=== PATIENT | female | born 1965 | race Caucasian/White ===

== ENCOUNTER 2019-04-11 12:59 | Emergency (ER) | payer MEDICARE, MEDICAID ==
[~2019-04-11] VITALS: Ht 167.6 cm; Wt 88.6 kg
[2019-04-11] MEDS ORDERED: famotidine/PF 10 mg/ml inj IV ONE (13:35)
[2019-04-11] MEDS ORDERED: ondansetron/PF 4mg/2ml inj IV ONE (13:35)
[2019-04-11] MEDS ORDERED: normal saline 1000ML IV soln IVB ONE (13:35)
[2019-04-11] MEDS ORDERED: morphine 4 MG/ML inj SYRINge IV PRN (13:35)
[2019-04-11 14:05] LABS: BASOPHILS % (AUTO) 0.6 % (0-1); EOSINOPHILS % (AUTO) 0.9 % (0-6); HEMATOCRIT 42.7 % (35.0-45.0); HEMOGLOBIN 14.9 g/dl (12.0-16.0); LYMPHOCYTES # (AUTO) 1.2 X10'3 (1.1-4.8); LYMPHOCYTES % (AUTO) 21.8 % (21-51); MEAN CORPUSCULAR HEMOGLOBIN 33.1 PG (27.0-31.0); MEAN CORPUSCULAR HGB CONC 34.8 g/dL (33.0-36.5); MEAN CORPUSCULAR VOLUME 95.2 FL (78-98); MEAN PLATELET VOLUME 10.6 FL (7.4-10.4); MONOCYTES # (AUTO) 0.3 X10'3 (0-0.9); MONOCYTES % (AUTO) 5.6 % (2-12); NEUTROPHILS % (AUTO) 71.1 % (42-75); PLATELET COUNT 127 X10'3 (140-440); RED BLOOD COUNT 4.49 X10'6 (4.20-5.60); RED CELL DISTRIBUTION WIDTH 13.3 % (11.5-14.5); WHITE BLOOD COUNT 5.6 X10'3 (4.5-11.0)
[2019-04-11 14:15] LABS: ALANINE AMINOTRANSFERASE 18 U/L (12-78); ALBUMIN 3.8 G/DL (3.4-5.0); ALBUMIN/GLOBULIN RATIO 1.2 (1.1-1.5); ALKALINE PHOSPHATASE 109 IU/L (46-116); ANION GAP 11 (8-16); ASPARTATE AMINO TRANSFERASE 10 U/L (10-37); BILIRUBIN,TOTAL 0.7 MG/DL (0.1-1.0); BLOOD UREA NITROGEN 15 MG/DL (7-18); BUN/CREATININE RATIO 22.4 (6.6-38.0); CALCIUM 8.9 MG/DL (8.5-10.1); CHLORIDE 107 MMOL/L (99-107); CREATININE 0.67 MG/DL (0.40-0.90); GLUCOSE 103 MG/DL (70-104); LIPASE 318 U/L (73-393); POTASSIUM 3.4 MMOL/L (3.5-5.1); SODIUM 144 MMOL/L (135-145); TOTAL CARBON DIOXIDE 26.4 MMOL/L (24-32); TOTAL PROTEIN 6.9 G/DL (6.4-8.2); eGFR > 90 ML/MIN
[2019-04-11] MEDS ORDERED: OMEP40CA13 PO (14:25)
[2019-04-11] MEDS ORDERED: ONDA4TAB6 PO (14:25)
[2019-04-11 14:44] LABS: CLARITY,URINE CLEAR (Clear); COLOR,URINE YELLOW (Yellow); GLUCOSE, URINE NEGATIVE (Neg); KETONES,URINE NEGATIVE (Neg); LEUKOCYTE ESTERASE ,URINE NEGATIVE (Neg); NITRITES, URINE NEGATIVE (Neg); OCCULT BLOOD,URINE SMALL (Neg); PH,URINE 6.5 (4.8-8.0); PROTEIN,URINE NEGATIVE (Neg); UROBILINOGEN,URINE 0.2 E.U/dL (0.2-1.0)
[2019-04-11 14:46] LABS: UA COLLECTION TYPE CLN CATCH MIDSTREAM
[2019-04-11 14:49] LABS: BACTERIA,URINE NONE SEEN /HPF (Neg); MUCUS STRANDS NONE SEEN /LPF (Neg); SQUAMOUS EPITHELIAL CELL,UR FEW /LPF (FEW); WBC,URINE NONE SEEN /HPF (0-4)
[2019-04-11 15:17] VITALS: BP 181/100
== END 2019-04-11 15:21 | disposition home or self-care (01) ==
LOC: ER 13:00
DX: K29.00 Acute gastritis without bleeding (principal); Z79.899 Other long term (current) drug therapy
CPT/HCPCS: 36415; 80053; 81001; 83690; 85025; 96361; 96374; 96375; 99283; J2270; J2405; J3490; J7030

== ENCOUNTER 2020-10-16 09:53 | Emergency (ER) | payer MEDICARE, MEDICAID ==
[~2020-10-16] VITALS: Ht 170.2 cm; Wt 93.0 kg
[~2020-10-16 09:53] MED LIST: FOLI0.4T6 PO; HYDR-3965 PO; HYDR-4069 PO; HYDR12.55 PO; LOSA100T57 PO; MULT-25 PO; NOR5T PO; OMEP40CA13 PO; POTA10TA36 PO; RISP0.5T65 PO; SERT-433 PO; THIA50TA10 PO
[2020-10-16] MEDS ORDERED: ketorolac trometh. 30mg/ml inj. IV ONE (10:35)
[2020-10-16] MEDS ORDERED: proCHLORperazine 10 MG/2 ml inj IV ONE (10:35)
[2020-10-16] MEDS ORDERED: normal saline 1000ML IV soln IVB ONE (10:35)
[2020-10-16 11:06] LABS: BASOPHILS % (AUTO) 0.1 % (0-1); EOSINOPHILS % (AUTO) 0.1 % (0-6); HEMATOCRIT 45.7 % (35.0-45.0); HEMOGLOBIN 15.8 g/dl (12.0-16.0); LYMPHOCYTES # (AUTO) 0.7 X10'3 (1.1-4.8); LYMPHOCYTES % (AUTO) 7.5 % (21-51); MEAN CORPUSCULAR HEMOGLOBIN 32.9 PG (27.0-31.0); MEAN CORPUSCULAR HGB CONC 34.5 g/dL (33.0-36.5); MEAN CORPUSCULAR VOLUME 95.5 FL (78-98); MEAN PLATELET VOLUME 11.1 FL (7.4-10.4); MONOCYTES # (AUTO) 0.2 X10'3 (0-0.9); MONOCYTES % (AUTO) 2.3 % (2-12); PLATELET COUNT 146 X10'3 (140-440); RED BLOOD COUNT 4.79 X10'6 (4.20-5.60); RED CELL DISTRIBUTION WIDTH 13.5 % (11.5-14.5); WHITE BLOOD COUNT 8.9 X10'3 (4.5-11.0)
[2020-10-16 11:21] LABS: ALANINE AMINOTRANSFERASE 23 U/L (12-78); ALBUMIN 4.1 G/DL (3.4-5.0); ALBUMIN/GLOBULIN RATIO 1.2 (1.1-1.5); ALKALINE PHOSPHATASE 138 IU/L (46-116); ANION GAP 13 (8-16); ASPARTATE AMINO TRANSFERASE 9 U/L (10-37); BILIRUBIN,TOTAL 0.5 MG/DL (0.1-1.0); BLOOD UREA NITROGEN 8 MG/DL (7-18); BUN/CREATININE RATIO 11.9 (6.6-38.0); CALCIUM 9.3 MG/DL (8.5-10.1); CHLORIDE 106 MMOL/L (99-107); CREATININE 0.67 MG/DL (0.40-0.90); GLUCOSE 198 MG/DL (70-104); POTASSIUM 3.4 MMOL/L (3.5-5.1); SODIUM 144 MMOL/L (135-145); TOTAL CARBON DIOXIDE 24.7 MMOL/L (24-32); TOTAL PROTEIN 7.6 G/DL (6.4-8.2); eGFR > 90 ML/MIN
[2020-10-16] MEDS ORDERED: morphine 2 MG/ML inj. syringe IV PRN (11:25)
[2020-10-16] MEDS ORDERED: HYDROmorphone 1 mg/ml syringe IV ONE (11:45)
--- NOTE | 2020-10-16 11:50 | NUR ---
Urine obtained and sent to lab. Pt c/o of 03/02 pain refuses morphine. Requste made for alternate pain medication.
[2020-10-16 11:55] LABS: CLARITY,URINE SLIGHTLY CLOUDY (Clear); COLOR,URINE YELLOW (Yellow); GLUCOSE, URINE NEGATIVE (Neg); KETONES,URINE >=80 mg/dl (Neg); LEUKOCYTE ESTERASE ,URINE NEGATIVE (Neg); NITRITES, URINE NEGATIVE (Neg); OCCULT BLOOD,URINE SMALL (Neg); PROTEIN,URINE TRACE mg/dl (Neg); UROBILINOGEN,URINE 0.2 E.U/dL (0.2-1.0)
[2020-10-16 12:00] LABS: UA COLLECTION TYPE STRAIGHT CATH
[2020-10-16 12:02] LABS: BACTERIA,URINE NONE SEEN /HPF (Neg); MUCUS STRANDS NONE SEEN /LPF (Neg); SQUAMOUS EPITHELIAL CELL,UR FEW /LPF (FEW)
[2020-10-16 12:03] LABS: RBC,URINE 20-50 /HPF (0-2)
[2020-10-16] MEDS ORDERED: ondansetron/PF 4mg/2ml inj IV ONE (12:05)
--- NOTE | 2020-10-16 12:13 | NUR ---
Pt out for CT. PA notified of SBP.
[2020-10-16] MEDS ORDERED: FLO0.4C PO (13:18)
[2020-10-16] MEDS ORDERED: OXYC-150 PO (13:19)
[2020-10-16] MEDS ORDERED: IBUP-1985 PO (13:19)
[2020-10-16] MEDS ORDERED: ONDA4TAB6 PO (13:45)
[2020-10-16 13:48] VITALS: BP 152/85
== END 2020-10-16 13:51 | disposition home or self-care (01) ==
LOC: ER 09:54
DX: R10.9 Unspecified abdominal pain (principal); N20.0 Calculus of kidney; R11.2 Nausea with vomiting, unspecified; F12.90 Cannabis use, unspecified, uncomplicated; Z98.891 History of uterine scar from previous surgery; Z87.442 Personal history of urinary calculi; Z88.6 Allergy status to analgesic agent; Z79.899 Other long term (current) drug therapy
CPT/HCPCS: 36415; 74176; 76770; 80053; 81001; 85025; 87088; 96374; 96375; 99285; J0780; J1170; J1885; J2405; J7030; 96361; 96365

== ENCOUNTER 2021-09-16 15:32 | Emergency (ER) | payer MEDICARE, MEDICAID ==
[~2021-09-16] VITALS: Ht 167.6 cm; Wt 100.0 kg
[~2021-09-16 15:32] MED LIST changes: -FOLI0.4T6 PO; -HYDR-3965 PO; -HYDR-4069 PO; +IBUP-1985 PO; -OMEP40CA13 PO; +OMEP40CA21 PO; +ONDA4TAB6 PO; +OXYC-150 PO; -POTA10TA36 PO; +POTA10TA37 PO
[2021-09-16 16:02] LABS: BASOPHILS % (AUTO) 0.4 % (0-1); EOSINOPHILS % (AUTO) 0.7 % (0-6); HEMATOCRIT 45.8 % (35.0-45.0); HEMOGLOBIN 15.7 g/dl (12.0-16.0); LYMPHOCYTES # (AUTO) 0.7 X10'3 (1.1-4.8); LYMPHOCYTES % (AUTO) 13.9 % (21-51); MEAN CORPUSCULAR HEMOGLOBIN 32.2 PG (27.0-31.0); MEAN CORPUSCULAR HGB CONC 34.2 g/dL (33.0-36.5); MEAN PLATELET VOLUME 10.3 FL (7.4-10.4); MONOCYTES # (AUTO) 0.2 X10'3 (0-0.9); MONOCYTES % (AUTO) 4.1 % (2-12); NEUTROPHILS # (AUTO) 4.1 X10'3 (1.8-7.7); NEUTROPHILS % (AUTO) 80.9 % (42-75); PLATELET COUNT 120 X10'3 (140-440); RED BLOOD COUNT 4.87 X10'6 (4.20-5.60); RED CELL DISTRIBUTION WIDTH 14.6 % (11.5-14.5); WHITE BLOOD COUNT 5.1 X10'3 (4.5-11.0)
[2021-09-16 16:16] LABS: ALANINE AMINOTRANSFERASE 24 U/L (12-78); ALBUMIN 4.2 G/DL (3.4-5.0); ALBUMIN/GLOBULIN RATIO 1.2 (1.1-1.5); ALKALINE PHOSPHATASE 170 IU/L (46-116); ANION GAP 14 (8-16); ASPARTATE AMINO TRANSFERASE 15 U/L (10-37); BILIRUBIN,TOTAL 0.6 MG/DL (0.1-1.0); BLOOD UREA NITROGEN 7 MG/DL (7-18); BUN/CREATININE RATIO 9.3 (6.6-38.0); CALCIUM 8.8 MG/DL (8.5-10.1); CHLORIDE 107 MMOL/L (99-107); CREATININE 0.75 MG/DL (0.40-0.90); GLUCOSE 152 MG/DL (70-104); LIPASE 604 U/L (73-393); POTASSIUM 3.7 MMOL/L (3.5-5.1); SODIUM 144 MMOL/L (135-145); TOTAL CARBON DIOXIDE 23.3 MMOL/L (24-32); TOTAL PROTEIN 7.6 G/DL (6.4-8.2); eGFR 80 ML/MIN
[2021-09-16] MEDS ORDERED: normal saline 1000ML IV soln IV ONE (22:30)
[2021-09-16] MEDS ORDERED: fentaNYL/PF 50MCG/1 ML 2ML syringe IV ONE (22:30)
[2021-09-16] MEDS ORDERED: mag hydrox/Alum hydrox/simeth 30ml oral suspension PO ONE (22:30)
[2021-09-16] MEDS ORDERED: LIDOcaine Viscous 15ml cup MM ONE (22:30)
[2021-09-16] MEDS ORDERED: ondansetron/PF 4mg/2ml inj IV ONE (22:30)
[2021-09-16] MEDS ORDERED: sucralfate 1 gm tablet PO ONE (22:30)
[2021-09-16 23:58] VITALS: BP 184/98
== END 2021-09-17 00:02 | disposition home or self-care (01) ==
LOC: ER 15:32
DX: K29.20 Alcoholic gastritis without bleeding (principal); K85.20 Alcohol induced acute pancreatitis without necrosis or infection; F10.20 Alcohol dependence, uncomplicated; R11.2 Nausea with vomiting, unspecified; R10.84 Generalized abdominal pain; F12.90 Cannabis use, unspecified, uncomplicated; Z87.442 Personal history of urinary calculi; Z90.710 Acquired absence of both cervix and uterus; Z98.890 Other specified postprocedural states; Z72.89 Other problems related to lifestyle; Z88.5 Allergy status to narcotic agent; Z79.899 Other long term (current) drug therapy; Y90.9 Presence of alcohol in blood, level not specified
CPT/HCPCS: 36415; 80053; 83690; 85025; 96374; 96375; 99284; J2405; J3010; J7030

== ENCOUNTER 2021-09-23 09:40 | Emergency (ER) | payer MEDICARE, MEDICAID ==
[~2021-09-23] VITALS: Ht 167.6 cm; Wt 97.7 kg
[2021-09-23 10:12] LABS: BASOPHILS % (AUTO) 0.7 % (0-1); EOSINOPHILS % (AUTO) 0.2 % (0-6); HEMATOCRIT 47.3 % (35.0-45.0); HEMOGLOBIN 15.9 g/dl (12.0-16.0); LYMPHOCYTES # (AUTO) 1.1 X10'3 (1.1-4.8); LYMPHOCYTES % (AUTO) 16.4 % (21-51); MEAN CORPUSCULAR HGB CONC 33.6 g/dL (33.0-36.5); MEAN PLATELET VOLUME 11.1 FL (7.4-10.4); MONOCYTES # (AUTO) 0.4 X10'3 (0-0.9); MONOCYTES % (AUTO) 5.8 % (2-12); NEUTROPHILS # (AUTO) 5.2 X10'3 (1.8-7.7); NEUTROPHILS % (AUTO) 76.9 % (42-75); PLATELET COUNT 145 X10'3 (140-440); RED BLOOD COUNT 4.98 X10'6 (4.20-5.60); RED CELL DISTRIBUTION WIDTH 14.6 % (11.5-14.5); WHITE BLOOD COUNT 6.8 X10'3 (4.5-11.0)
[2021-09-23 10:25] LABS: ALANINE AMINOTRANSFERASE 16 U/L (12-78); ALBUMIN 4.2 G/DL (3.4-5.0); ALBUMIN/GLOBULIN RATIO 1.1 (1.1-1.5); ALKALINE PHOSPHATASE 144 IU/L (46-116); AMYLASE 125 U/L (25-115); ANION GAP 21 (8-16); ASPARTATE AMINO TRANSFERASE 26 U/L (10-37); BILIRUBIN,TOTAL 0.9 MG/DL (0.1-1.0); BLOOD UREA NITROGEN 8 MG/DL (7-18); CALCIUM 9.1 MG/DL (8.5-10.1); CHLORIDE 104 MMOL/L (99-107); CREATININE 0.73 MG/DL (0.40-0.90); GLUCOSE 142 MG/DL (70-104); LIPASE 976 U/L (73-393); POTASSIUM 3.5 MMOL/L (3.5-5.1); SODIUM 142 MMOL/L (135-145); TOTAL CARBON DIOXIDE 16.9 MMOL/L (24-32); TOTAL PROTEIN 7.9 G/DL (6.4-8.2); eGFR 83 ML/MIN
[2021-09-23] MEDS ORDERED: normal saline 1000ML IV soln IVB ONE (10:30)
[2021-09-23 10:51] LABS: ETHANOL < 0.010 GM/DL (0.0-0.010)
[2021-09-23 10:56] VITALS: BP 161/96
[2021-09-23] MEDS ORDERED: oxyCODONE IR 5mg (immed. release) tablet PO ONE (11:00)
[2021-09-23 11:22] LABS: CLARITY,URINE TURBID (Clear); COLOR,URINE YELLOW (Yellow); GLUCOSE, URINE NEGATIVE (Neg); KETONES,URINE >=80 mg/dl (Neg); LEUKOCYTE ESTERASE ,URINE NEGATIVE (Neg); NITRITES, URINE NEGATIVE (Neg); OCCULT BLOOD,URINE TRACE-INTACT (Neg); PROTEIN,URINE TRACE mg/dl (Neg); UROBILINOGEN,URINE 0.2 E.U/dL (0.2-1.0)
[2021-09-23 11:35] LABS: UA COLLECTION TYPE STRAIGHT CATH
[2021-09-23 11:40] LABS: SQUAMOUS EPITHELIAL CELL,UR MANY /LPF (FEW)
[2021-09-23 11:43] LABS: BACTERIA,URINE 1+ /HPF (Neg)
[2021-09-23 11:44] LABS: WBC,URINE 0-4 /HPF (0-4)
[2021-09-23 11:48] LABS: URINE AMPHETAMINE SCREEN NEGATIVE (Neg); URINE BARBITUATE SCREEN NEGATIVE (Neg); URINE BENZODIAZEPINES SCREEN NEGATIVE (Neg); URINE CANNABINOID SCREEN POSITIVE (Neg); URINE COCAINE SCREEN NEGATIVE (Neg); URINE METHADONE SCREEN NEGATIVE (Neg); URINE OPIATE SCREEN NEGATIVE (Neg); URINE PHENCYCLIDINE SCREEN NEGATIVE (Neg)
[2021-09-23] MEDS ORDERED: OXYC-658 PO (11:59)
[2021-09-23] MEDS ORDERED: ondansetron 4mg/5ml UD cup PO ONE (12:05)
== END 2021-09-23 13:00 | disposition home or self-care (01) ==
LOC: ER 09:41
DX: K85.90 Acute pancreatitis without necrosis or infection, unspecified (principal); R10.84 Generalized abdominal pain; K59.00 Constipation, unspecified; F12.90 Cannabis use, unspecified, uncomplicated; Z87.442 Personal history of urinary calculi; Z90.710 Acquired absence of both cervix and uterus; Z98.890 Other specified postprocedural states; Z72.89 Other problems related to lifestyle; Z88.5 Allergy status to narcotic agent; Z79.899 Other long term (current) drug therapy
CPT/HCPCS: 36415; 80053; 80305; 80320; 81001; 82150; 83690; 85025; 96360; 99283; J7030

== ENCOUNTER 2024-04-21 10:43 | Emergency (ER) | payer MEDICARE, MEDICAID ==
[~2024-04-21] VITALS: Ht 167.6 cm; Wt 67.0 kg
[~2024-04-21 10:43] MED LIST changes: -LOSA100T57 PO; +LOSA100T58 PO; +POTA-206 PO; -POTA10TA37 PO; -RISP0.5T65 PO; +RISP0.5T80 PO
[2024-04-21] MEDS: HYDROcodone/acetaminophen 5mg/325mg tablet PO ONE (12:04)
[2024-04-21] MEDS: ketorolac trometh 30MG/ML vial 30 MG/ML VIAL IM ONE (12:04)
[2024-04-21] MEDS: colchicine 0.6mg tablet PO ONE ×2 (12:05)
[2024-04-21 12:19] VITALS: BP 148/86; PULSE 76; RESP 16; TEMP 98.1; O2SAT 99
== END 2024-04-21 12:18 | disposition home or self-care (01) ==
LOC: ER 10:43
DX: M10.9 Gout, unspecified (principal); F10.10 Alcohol abuse, uncomplicated; F12.90 Cannabis use, unspecified, uncomplicated; Z88.5 Allergy status to narcotic agent; Z90.710 Acquired absence of both cervix and uterus; Z79.1 Long term (current) use of non-steroidal anti-inflammatories (NSAID); Z79.899 Other long term (current) drug therapy; Z87.442 Personal history of urinary calculi
CPT/HCPCS: 96372; 99284; J1885